=== PATIENT | female | born 1980 | race Caucasian/White ===

== ENCOUNTER 2016-08-13 18:03 | Emergency (ER) | payer SELFPAY ==
--- NOTE | 2016-08-13 20:46 | DIAGNOSTIC IMAGING REPORT ---
PROCEDURE: CT ABD/PELVIS WITH CONTRAST INDICATION: Right abdominal pain. Prior cholecystectomy. TECHNIQUE: 150 ml of Isovue 300 were injected intravenously and axial images were obtained of the entire abdomen and pelvis with sagittal and coronal reformations. COMPARISON: None. FINDINGS: ABDOMEN: Status post cholecystectomy (surgical clips). Liver, spleen, pancreas, kidneys (1 cm upper pole renal cyst), and aorta are normal. Bowel pattern is normal, including appendix. Mild degenerative change of the lower lumbar spine. PELVIS: Uterus and adnexal structures are normal. No evidence of free fluid. IMPRESSION: 1. Status post cholecystectomy. 2. Normal appendix. 3. Otherwise negative CT abdomen and pelvis. 4. Findings discussed with KELI Tejeda. All CT scans at this facility use dose modulation, iterative reconstruction, and/or weight-based dosing when appropriate to reduce radiation dose to as low as reasonably achievable.
--- NOTE | 2016-08-13 21:15 | ED ORDER SUMMARY ---
..... Patient: HARSHIL YUEN OrderSheet [facility] VisitID: [id number] [place] [address] 35y, F Registration Date/Time: 08/13/2016 ORDER SHEET Weight: 135.6 kg Allergies: Dilaudid GENERAL ORDERS: UA-Culture if indicated Urgent (18:29 08/13/2016 EInderbitzen R.N. verbal order read back to HBivens A.R.N.P.) (Ack 18:31 LMuller) (18:31 LMuller) Urine Urgent (18:29 08/13/2016 EInderbitzen R.N. verbal order read back to HBivens A.R.N.P.) (Ack 18:31 LMuller) (18:31 LMuller) CT Abd/Pel w Cont (No) (pending) Urgent (18:34 08/13/2016 HBivens A.R.N.P.) (Ack 18:35 LMuller) (19:52 Jodi ER Magneto Repairer) CBC w Diff Urgent (18:34 08/13/2016 HBivens A.R.N.P.) (Ack 18:35 LMuller) (18:58 EInderbitzen R.N.) CMP Urgent (18:34 08/13/2016 HBivens A.R.N.P.) (Ack 18:35 LMuller) (18:58 EInderbitzen R.N.) Amylase Urgent (18:34 08/13/2016 HBivens A.R.N.P.) (Ack 18:35 LMuller) (18:58 EInderbitzen R.N.) Lipase Urgent (18:34 08/13/2016 HBivens A.R.N.P.) (Ack 18:35 LMuller) (18:58 EInderbitzen R.N.) MEDICATION ORDERS: Hydrocodone-APAP PO 5/325 mg (NOW, HIGH ALERT MEDICATION) (21:14 08/13/2016 HBivens A.R.N.P.) (21:29 EInderbitzen R.N.) IV FLUIDS: IV Saline Lock (18:34 08/13/2016 HBivens A.R.N.P.) (18:58 EInderkrystian R.N.) Toradol IV 30 mg (NOW) (18:36 08/13/2016 HBivens A.R.N.P.) (18:58 EInderbitzen R.N.) Zofran IV 4 mg (NOW) (18:36 08/13/2016 HBivens A.R.N.P.) (18:58 EInderbitzen R.N.) ORDER SHEET NOTES: [Electronically signed by Tala Nur R.N. (21:29 08/13/2016)] [Electronically signed by Amalia MataRMeccaN.PMecca (21:30 08/13/2016)] [Electronically locked/signed by Tala Nur R.N. (21:29 08/13/2016)]
--- NOTE | 2016-08-13 21:15 | ED NURSING NOTES ---
Clinical Report - [facility] [address] [place] [address] 08/13/2016 18:06 [id number] TRI[facility] Triage time 18:13 Aug 13 2016. Acuity: LEVEL 3. Chief Complaint: ABDOMINAL PAIN and (right lower quadrant). 18:19 08/13/16. SEPSIS SCREEN: Sepsis Screen: positive. Infection suspected/documented. --18:19 Tala Nur R.N. 18:13 08/13/16. BP: 142/92. HR: 109. RR: 25. O2 saturation: 95%. Temp: 100.2 F. Pain level now: 04/17. --18:19 Tala Nur R.N. Weight: 135.6 kg. Height/Length: 69 inches. BMI: 44.2. --18:11 Tala Nur R.N. Medications None. --18:13 Tala Nur R.N. Medication/allergy information source: the patient. --18:19 Tala Nur R.N. Allergies Dilaudid. --18:13 Tala Nur R.N. History Arrived by private vehicle. Historian: patient. Accompanied by family. Onset. (7 days ago). ( each day progressively worse, today unbearable). She has had nausea. She has had vomiting (once today at 230 pm). She has had constipation (last bm midnight last night). No diarrhea. Treatment AUTOMATIC CAR WASH ATTENDANT: None. PAST MEDICAL HX: Immunizations: seasonal influenza. Last normal menstrual period- 2 months ago. SOCIAL HX: Heavy tobacco smoker (cigarette)- less than 1 pack per day. Occasional alcohol use. No drug use. No recent travel. No infectious disease exposure. No known contact with a sick individual. ABUSE ASSESSMENT: No report of abuse. SELF HARM ASSESSMENT: A self harm assessment was performed. The patient answered "no" to the question "Have you recently felt down, depressed, or hopeless?", "Have you noticed less interest or pleasure in doing things?", "Do you have thoughts of harming or killing yourself?", "Are you here because you tried to hurt yourself?", "Have you ever tried to hurt yourself before today?", "Have you recently had thoughts about harming or killing others?" and "Do you have any dangerous items in your possession?". FALL RISK ASSESSMENT: Fall risk assessment completed. No fall risk identified. NUTRITIONAL RISK ASSESSMENT: The nutritional risk assessment revealed no deficiencies. FUNCTIONAL ASSESSMENT: Functional assessment: no impairments noted. LEARNING NEEDS ASSESSMENT: The learning needs assessment revealed no barriers. SKIN INTEGRITY ASSESSMENT: Skin integrity risk assessment completed. No skin integrity risk identified. --18:19 Tala Nur R.N. PROBLEMS: no known problems. ADDITIONAL SURGERIES: Cholecystectomy. --18:14 Tala Nur R.N. Interventions ID band on patient. --18:19 Tala Nur R.N. PHYSICAL ASSESSMENT 18:20 08/13/16. Ambulatory to room. GENERAL / NEURO / PSYCH: Alert. Oriented X 4. Appears in pain. HEENT: Mucous membranes are pink. RESPIRATORY: Breath sounds within normal limits. CVS: Capillary refill less than 2 seconds. GI / : The patient has had nausea. Abdomen soft and nontender. Abdominal tenderness in the right lower quadrant. Guarding present. Guarding present. No diarrhea. No CVA tenderness, urethral discharge or vaginal discharge. SKIN: Skin is warm and dry. --18:28 Tala Nur R.N. NURSING PROGRESS NOTES 18:20 08/13/16. The initial plan of care for this patient includes an assessment with efforts to address the patient's anxiety; the presence of pain; impairment of the gastrointestinal and genitourinary system; hydration needs. This plan of care was discussed with the patient. Patient gowned. Reassurance given. Two patient identifiers checked. Call light placed in reach. Side rails up x 1. Bed placed in lowest position. Brakes of bed on. Patient ready for evaluation. --18:28 Tala Nur R.N. 18:29 08/13/16. Patient ID band checked for patient name and birthdate: patient confirmed. Instructions provided to collect clean catch urine and patient verbalized understanding. Clean catch urine collected with return of yellow-colored clear urine; sample sent to lab for urinalysis and HCG. Specimen labeled in the presence of the patient. --18:29 Tala Nur R.N. 18:55 08/13/2016 Site #1 started via IV in the right forearm with an 20g angiocath, with aseptic technique and good blood return; one attempt. Blood drawn: rainbow set. Labeled in the presence of the patient and sent to the lab. Saline lock flushed with 10 mL saline. --18:57 Tala Nur R.N. 18:55 08/13/2016 Zofran (Ondansetron HCl) IVP 4 mg given over 1 minute(s) via site #1. Allergies verified and confirmed 5 rights. IV patency established. IV site checked: no pain, redness, or swelling. IV flushed thoroughly pre- and post-medication administration. IVP given by RN. --18:58 Tala Nur R.N. 18:56 08/13/2016 Toradol IVP 30 mg given over 1 minute(s) via site #1. Allergies verified and confirmed 5 rights. IV patency established. IV site checked: no pain, redness, or swelling. IV flushed thoroughly pre- and post-medication administration. IVP given by RN. --18:58 Tala Nur R.N. 19:29 08/13/16. Reassessment after medication administered. She has had no adverse reaction. Overall patient status is improved- she states feels better. GI / : The patient reports abdominal pain is still present but improving. --19:29 Tala Nur R.N. 20:07 08/13/16. BP: 111/66. HR: 96. RR: 18. O2 saturation: 97%. Temp: 98.3 F. Pain level now 4/10. --20:07 Tala Nur R.N. 20:07 08/13/16. The patient is calm and resting quietly. Overall patient status is the same- she states feels the same. --20:08 Tala Nur R.N. 21:23 08/13/2016 Hydrocodone-APAP (Hydrocodone-Acetaminophen) PO 5/325 mg Tablets 1 tab given. Allergies verified, confirmed 5 rights and sedative warning given to the patient. --21:29 Tala Nur R.N. DISPOSITION / DISCHARGE 21:23 08/13/2016 Site #1 removed upon discharge. Catheter intact. Pressure dressing applied. --21:27 Tala Nur R.N. 21:28 08/13/16. Condition at departure: improved and stable. No learning barriers present. Reviewed medication(s) side effects, precautions, dosing and course information. Prescription(s) given to the patient. Reviewed fever care instructions. Reviewed referral to a primary care physician for followup and testing. Summary of care provided to patient. Patient verbalized understanding. Written instructions provided in Danish. The patient was discharged home and accompanied by spouse. She left the Emergency Department ambulatory and via private vehicle. Spouse driving. FALL RISK ASSESSMENT: Fall risk assessment completed. No fall risk identified. --21:28 Tala Nur R.N. 21:28 08/13/16. BP: 124/84. HR: 88. RR: 18. O2 saturation: 100%. Temp: 98.9 F. Pain level now 5/10. --21:28 Tala Nur R.N. Departure time: 21:Aug 13 2016. --21:28 Tala Nur R.N. Locked/Released at 08/13/2016 21:29 by Tala Nur R.N.
--- NOTE | 2016-08-13 21:15 | ED CLINICAL REPORT ---
Clinical Report - Physicians/Mid Levels [facility] [address] [place] [address] 08/13/2016 18:06 Patient: HARSHIL YUEN Time Seen: 18:14; initial patient contact, initial documentation, patient care assumed. Arrived- By private vehicle. Historian- patient. HISTORY OF PRESENT ILLNESS Chief Complaint: ABDOMINAL PAIN. At its maximum, severity described as severe. When seen in the E.D., severity described as severe. Modifying factors. Not worsened by anything. Not relieved by anything. It is described as "pain" and it is described as located in the right lower quadrant. This started about 1 weeks ago and is still present and worsening. The patient has had nausea, loss of appetite and vomiting. The vomiting has occurred only once. No diarrhea. No recent travel. Similar symptoms previously: None. Recent medical care: Not recently seen/assessed. REVIEW OF SYSTEMS No constipation, black stools, hematemesis, difficulty with urination or pain with urination. No urinary frequency, bloody stools, chest pain or difficulty breathing. Currently : unknown. The patient has had fever of 99 F. All systems otherwise negative, except as recorded above. PAST HISTORY See nurses notes. ADDITIONAL SURGERIES: Cholecystectomy. --18:14 Tala Nur R.N. SOCIAL HISTORY Heavy tobacco smoker. Occasional alcohol use. No drug use. No recent travel. Is a local resident. FAMILY HISTORY Negative. ADDITIONAL NOTES The nursing notes have been reviewed with agreement regarding the chief complaint, HPI, ROS, PMH and patient medications and allergies. PHYSICAL EXAM Vital Signs: 08/13/2016 18:13 BP: 142/92. HR: 109. RR: 25. O2 saturation: 95%. Temp: 100.2 F. Pain level now: 10/10. Have been reviewed as abnormal and appear to be correct. Blood pressure normal. Tachycardic. Respiratory rate normal. Febrile. Oxygen saturation normal. Appearance: Alert. Oriented X3. No acute distress. Eyes: Pupils equal, round and reactive to light. Eyes normal inspection. Neck: Normal inspection. Neck supple. CVS: Normal heart rate and rhythm. Heart sounds normal. Pulses normal. Respiratory: No respiratory distress. Breath sounds normal. Chest nontender. Abdomen: Soft. Moderate tenderness in the right lower quadrant with guarding and rebound tenderness present. Positive obturator and psoas sign. No Krause's sign present. Bowel sounds normal. No organomegaly. No mass. Moderately obese. Tenderness present. Back: Normal inspection. Skin: Skin warm and dry. Normal skin color. No rash. Normal skin turgor. Extremities: Extremities exhibit normal ROM. No lower extremity edema. Neuro: Oriented X 3. No motor deficit. No sensory deficit. LABS, X-RAYS, AND EKG Abdominal CT: No acute disease. IMPRESSION: 1. Status post cholecystectomy. 2. Normal appendix. 3. Otherwise negative CT abdomen and pelvis. 4. Findings discussed with KELI Tejeda. All CT scans at this facility use dose modulation, iterative reconstruction, and/or weight-based dosing when appropriate to reduce radiation dose to as low as reasonably achievable. Electronically Final signed by:Brian Edouard MD 08/13/2016 8:44:15 PM. The study was interpreted by the radiologist and discussed with the radiologist. Laboratory Tests: UA-Culture if indicated: (GILBERTO: 08/13/2016 18:24) ( MsgRcvd 08/13/2016 18:49) Final results Test Result Flag Units (Reference) URINE COLOR YELLOW URINE APPEARANCE CLEAR URINE GLUCOSE NEGATIVE (NEGATIVE) URINE BILIRUBIN NEGATIVE (NEGATIVE) URINE KETONE NEGATIVE (NEGATIVE) URINE SPECIFIC GRAVITY 1.025 (1.010-1.030) URINE PH 5.0 (5.0-8.0) URINE PROTEIN NEGATIVE (NEGATIVE) URINE UROBILINOGEN 0.2 EU/dL (0.2-1.0) URINE NITRITE NEGATIVE (NEGATIVE) URINE BLOOD NEGATIVE (NEGATIVE) URINE LEUK ESTERASE NEGATIVE (NEGATIVE) URINE RBC 1-3 rbc/hpf (0-1) URINE WBC 1-3 wbc/hpf (0-1) URINE EPITHELIAL CELLS 5-10 EPI/hpf (0-5) URINE BACTERIA FEW (1+) (NONE SEEN) URINE COMMENT CULT NOT INDICATED MUCUS 1+URINE CULTURES ARE SET-UP BASED ON THE FOLLOWING CRITERIA:POSITIVE NITRITEPOSITIVE LEUKOCYTE ESTERASEGREATER THAN 10 WHITE BLOOD CELLSMODERATE (2+) OR GREATER BACTERIA Urine: (GILBERTO: 08/13/2016 18:24) ( [facility] 08/13/2016 18:45) Final results Test Result Flag Units (Reference) URINE NEGATIVE CBC w Diff: (GILBERTO: 08/13/2016 18:55) ( MngRcvd 08/13/2016 19:10) Final results Test Result Flag Units (Reference) WHITE BLOOD COUNT 9.2 K/uL (4.5-11.5) RED BLOOD COUNT 4.78 M/uL (4.00-5.20) HEMOGLOBIN 13.2 gm/dL (12.0-16.0) HEMATOCRIT 40.0 % (36.0-46.0) MEAN CELL VOLUME 84 fL (80-100) MEAN CORPUSCULAR HGB 28 pg (26-34) MEAN CORPUSCULAR HGB CONC 33 g/dL (31-37) RED CELL DISTRIBUTION WIDTH 14.6 % (11.6-14.8) PLATELET COUNT 251 K/uL (150-400) NEUTROPHIL % 89.9 H % (50-75) LYMPH % 5.6 L % (25-40) MONO % 3.2 % (3-14) EOSINOPHIL % 1.2 % (0-4) BASOPHIL % 0.1 % (0-2) CMP: (GILBERTO: 08/13/2016 18:55) ( [facility] 08/13/2016 19:18) Final results Test Result Flag Units (Reference) GLUCOSE 105 mg/dL (70-110) BUN 14 mg/dL (7-18) CREATININE 0.7 mg/dL (0.6-1.3) Estimated GFR >60 mL/min Estimated GFR- >60 mL/min Note: Persistent reduction over 3 months in eGFR<60 mL/min/1.73 m2 defines CKD. Patients with eGFR values>=60 mL/min/1.73 m2 may also have CKD if evidence ofpersistent proteinuria. Additional information may be foundat www.kidney.org. SODIUM 138 mmol/L (136-145) POTASSIUM 3.8 mmol/L (3.5-5.1) CHLORIDE 104 mmol/L (98-107) CARBON DIOXIDE 22 mmol/L (21-32) CALCIUM 8.2 L mg/dL (8.5-10.1) TOTAL PROTEIN 7.3 g/dL (6.4-8.2) ALBUMIN 3.4 g/dL (3.3-5.0) BILIRUBIN, TOTAL 0.7 mg/dL (0.0-1.0) ALKALINE PHOSPHATASE 81 U/L (46-116) AST (SGOT) 57 H U/L (15-37) ALT (SGPT) 93 H U/L (12-78) LIPASE 97 U/L (73-393) AMYLASE 34 U/L (25-115) . PROGRESS AND PROCEDURES Course of Care: 08/13/2016 20:07 BP: 111/66. HR: 96. RR: 18. O2 saturation: 97%. Temp: 98.3 F. Vital Signs: have been reviewed as normal and appear to be correct. Patient and spouse counseled in person regarding the patient's stable condition, test results and diagnosis. 2104. Differential Diagnosis: I considered acute appendicitis, diverticulitis, colon cancer, biliary colic, cholecystitis, cholelithiasis, hepatitis, pancreatitis, urinary tract infection, cystitis, ureterolithiasis, ovarian cyst, ovarian torsion, , ectopic , pelvic inflammatory disease, pelvic abscess, Mittelschmerz syndrome, endometriosis and viral syndrome as a possible cause of abdominal pain in this patient. This is a partial list of diagnoses considered. Above considerations are based on history, physical exam, X-Ray data and other information. Differential diagnosis was discussed with patient. Disposition: Discharged home in good and improved condition (21:15). Condition: good and stable. CLINICAL IMPRESSION Acute right lower quadrant abdominal pain of undetermined cause. INSTRUCTIONS Warnings: GENERAL WARNINGS: Return or contact your physician immediately if your condition worsens or changes unexpectedly, if not improving as expected, or if other problems arise. SPECIFICALLY, return if you develop pain in the abdomen or pelvis, fever, vomiting, the inability to keep fluids down, blood in vomitus, blood in diarrhea, fainting, lightheadedness or vaginal bleeding. Prescription Medications: Zofran 4 mg: Take 1 orally every six hours as needed for nausea/vomiting. Dispense ten (10). No refills. Substitution is permissible. Ultram 50 mg tablets: take 1-2 orally every 6 hours as needed for pain. Dispense twenty (20). No refills. Substitution is permissible. Follow-up: Follow up with your doctor tomorrow even if well. Call for an appointment. Summary of care provided to patient. Understanding of the discharge instructions verbalized by patient. (Electronically signed by Amalia Mata A.R.N.P. 08/13/2016 21:30)
--- NOTE | 2016-08-13 21:15 | ED ORDER SUMMARY ---
..... Patient: HARSHIL YUEN OrderSheet [facility] VisitID: [id number] [place] [address] 35y, F Registration Date/Time: 08/13/2016 ORDER SHEET Weight: 135.6 kg Allergies: Dilaudid GENERAL ORDERS: UA-Culture if indicated Urgent (18:29 08/13/2016 EInderbitzen R.N. verbal order read back to HBivens A.R.N.P.) (Ack 18:31 LMuller) (18:31 LMuller) Urine Urgent (18:29 08/13/2016 EInderbitzen R.N. verbal order read back to HBivens A.R.N.P.) (Ack 18:31 LMuller) (18:31 LMuller) CT Abd/Pel w Cont (No) (pending) Urgent (18:34 08/13/2016 HBivens A.R.N.P.) (Ack 18:35 LMuller) (19:52 Jodi ER Ultrasound Technologist) CBC w Diff Urgent (18:34 08/13/2016 HBivens A.R.N.P.) (Ack 18:35 LMuller) (18:58 EInderbitzen R.N.) CMP Urgent (18:34 08/13/2016 HBivens A.R.N.P.) (Ack 18:35 LMuller) (18:58 EInderbitzen R.N.) Amylase Urgent (18:34 08/13/2016 HBivens A.R.N.P.) (Ack 18:35 LMuller) (18:58 EInderbitzen R.N.) Lipase Urgent (18:34 08/13/2016 HBivens A.R.N.P.) (Ack 18:35 LMuller) (18:58 EInderbitzen R.N.) MEDICATION ORDERS: Hydrocodone-APAP PO 5/325 mg (NOW, HIGH ALERT MEDICATION) (21:14 08/13/2016 HBivens A.R.N.P.) (21:29 EInderbitzen R.N.) IV FLUIDS: IV Saline Lock (18:34 08/13/2016 HBivens A.R.N.P.) (18:58 EInderkrystian R.N.) Toradol IV 30 mg (NOW) (18:36 08/13/2016 HBivens A.R.N.P.) (18:58 EInderbitzen R.N.) Zofran IV 4 mg (NOW) (18:36 08/13/2016 HBivens A.R.N.P.) (18:58 EInderbitzen R.N.) ORDER SHEET NOTES: [Electronically signed by Tala Nur R.N. (21:29 08/13/2016)] [Electronically signed by Amalia MataRMeccaN.PMecca (21:30 08/13/2016)] [Electronically locked/signed by Tala Nur R.N. (21:29 08/13/2016)]
--- NOTE | 2016-08-13 21:30 | ED MED RECONCILIATION SUMMARY ---
Patient: HARSHIL YUEN Medication Reconciliation Report [facility] VisitID: [id number] [address] [place] [address] 35y, F Registration Date/Time: 08/13/2016 Weight: 135.6 kg Height/Length: 69 in. BMI: 44.2 ALLERGIES: Dilaudid The patient's Home Medications are listed below: NONE. The source(s) of the original Home Medication information: patient The following Medications were given to the patient in the Emergency Department: Toradol [IVP] IVP 30 mg, administered: 08/13/2016 6:56:00 PM Zofran [IVP] IVP 4 mg, administered: 08/13/2016 6:55:00 PM Hydrocodone-APAP [PO] PO 1 tab, administered: 08/13/2016 9:23:00 PM The following Medications were prescribed to the patient: Zofran 4 mg: Take 1 orally every six hours as needed for nausea/vomiting. Dispense ten (10). No refills. Substitution is permissible. -- Amalia Mata, Flako.R.N.P. Ultram 50 mg tablets: take 1-2 orally every 6 hours as needed for pain. Dispense twenty (20). No refills. Substitution is permissible. -- Amalia Mata A.R.N.P.
--- NOTE | 2016-08-13 21:30 | ED MED RECONCILIATION SUMMARY ---
Patient: HARSHIL YUEN Medication Reconciliation Report [facility] VisitID: [id number] [address] [place] [address] 35y, F Registration Date/Time: 08/13/2016 Weight: 135.6 kg Height/Length: 69 in. BMI: 44.2 ALLERGIES: Dilaudid The patient's Home Medications are listed below: NONE. The source(s) of the original Home Medication information: patient The following Medications were given to the patient in the Emergency Department: Toradol [IVP] IVP 30 mg, administered: 08/13/2016 6:56:00 PM Zofran [IVP] IVP 4 mg, administered: 08/13/2016 6:55:00 PM Hydrocodone-APAP [PO] PO 1 tab, administered: 08/13/2016 9:23:00 PM The following Medications were prescribed to the patient: Zofran 4 mg: Take 1 orally every six hours as needed for nausea/vomiting. Dispense ten (10). No refills. Substitution is permissible. -- Amalia Mata, Flako.R.N.P. Ultram 50 mg tablets: take 1-2 orally every 6 hours as needed for pain. Dispense twenty (20). No refills. Substitution is permissible. -- Amalia Mata A.R.N.P.
--- NOTE | 2016-08-13 21:30 | ED DISCHARGE INSTRUCTIONS ---
Patient: HARSHIL YUEN General Instructions [facility] VisitID: [id number] [place] [address] 35y, F Registration Date/Time: 08/13/2016 Acute right lower quadrant abdominal pain of undetermined cause. INSTRUCTIONS Warnings: GENERAL WARNINGS: Return or contact your physician immediately if your condition worsens or changes unexpectedly, if not improving as expected, or if other problems arise. SPECIFICALLY, return if you develop pain in the abdomen or pelvis, fever, vomiting, the inability to keep fluids down, blood in vomitus, blood in diarrhea, fainting, lightheadedness or vaginal bleeding. Prescription Medications: Zofran 4 mg: Take 1 orally every six hours as needed for nausea/vomiting. Dispense ten (10). No refills. Substitution is permissible. Ultram 50 mg tablets: take 1-2 orally every 6 hours as needed for pain. Dispense twenty (20). No refills. Substitution is permissible. Follow-up: Follow up with your doctor tomorrow even if well. Call for an appointment. Summary of care provided to patient. Understanding of the discharge instructions verbalized by patient. ADDITIONAL INFORMATION Abdominal Pain, Unknown Cause (Female) The exact cause of your abdominal (stomach) pain is not certain. This does not mean that this is something to worry about, or the right tests were not done. Everyone likes to know the exact cause of the problem, but sometimes with abdominal pain, there is no clear-cut cause, and this could be a good thing. The good news is that your symptoms can be treated, and you will feel better. Your condition does not seem serious now; however, sometimes the signs of a serious problem may take more time to appear. For this reason,it is important for you to watch for any new symptoms, problems,or worsening of your condition. Over the next few days, the abdominal pain may come and go, or be continuous. Other common symptoms can include nausea and vomiting. Sometimes it can be difficult to tell if you feel nauseous, you may just feel bad and not associate that feeling with nausea. Constipation, diarrhea, and a fever may go along with the pain. The pain may continue even if treated correctly over the following days. Depending on how things go, sometimes the cause can become clear and may require further or different treatment. Additional evaluations, medications, or tests may be needed. Home care Your health care provider may prescribe medications for pain, symptoms, or an infection. Follow the health care provider's instructions for taking these medications. General care Rest until your next exam. No strenuous activities. Try to find positions that ease discomfort. A small pillow placed on the abdomen may help relieve pain. Something warm on your abdomen (such as a heating pad) may help, but be careful not to burn yourself. Diet Do not force yourself to eat, especially if having cramps, vomiting, or diarrhea. Water is important so you do not get dehydrated. Soup may also be good. Sports drinks may also help, especially if they are not too acidic. Make sure you don't drink sugary drinks as this can make things worse. Take liquids in small amounts. Do not guzzle them. Caffeine sometimes makes the pain and cramping worse. Avoid dairy products if you have vomiting or diarrhea. Don't eat large amounts at a time. Wait a few minutes between bites. Eat a diet low in fiber (called a low-residue diet). Foods allowed include refined breads, white rice, fruit and vegetable juices without pulp, tender meats. These foods will pass more easily through the intestine. Avoid whole-grain foods, whole fruits and vegetables, meats, seeds and nuts, fried or fatty foods, dairy, alcohol and spicy foods until your symptoms go away. Follow-up care Follow up with your health care provider as instructed, or if your pain does not begin to improve in the next 24 hours. When to seek medical care Seek prompt medical care if any of the following occur: Pain gets worse or moves to the right lower abdomen New or worsening vomiting or diarrhea Swelling of the abdomen Unable to pass stool for more than three days Fever of 100.4F (38C) or higher, or as directed by your healthcare provider. Blood in vomit or bowel movements (dark red or black color) Jaundice (yellow color of eyes and skin) Weakness, dizziness Chest, arm, back, neck or jaw pain Unexpected vaginal bleeding or missed period Call 911 Call emergency services if any of the following occur: Trouble breathing Confusion Fainting or loss of consciousness Rapid heart rate Seizure Abdominal Pain,Possible Appendicitis [Repeat Exam, Female] Based on your visit today, the exact cause of your abdominal (stomach) pain is not certain. However, you do have some of the early signs of APPENDICITIS. Early in an appendix infection the symptoms can be similar to a simple "stomach ache" or "stomach flu". Therefore, the diagnosis can be hard to make. Since an appendix infection is a serious condition, it is important to know if this is the cause of your symptoms. WAITING for more time to pass and repeating the exam is the best way to find out whether you have appendicitis. Within the next 12-24 hours the cause of your stomach pain should become clear. It is important for you to watch for any new symptoms or worsening of your condition. (See below). Home Care: Rest until your next exam. No strenuous activities. Eat a diet low in fiber (called a low-residue diet). Foods allowed include refined breads, white rice, fruit and vegetable juices without pulp, tender meats. These foods will pass more easily through the intestine. Avoid whole-grain foods, whole fruits and vegetables, meats, seeds and nuts, fried or fatty foods, dairy, alcohol and spicy foods until your symptoms go away. In some cases, you may be asked not to eat or drink anything until you are re-examined. Return for another exam exactly as directed. Follow Up with your doctor or this facility as directed. Get Prompt Medical Attention if any of the following occur: Pain gets worse or moves to the right lower abdomen New or worsening vomiting or diarrhea Swelling of the abdomen Unable to pass stool for more than three days Fever of 100.4F (38C) or higher, or as directed by your healthcare provider Blood in vomit or bowel movements (dark red or black color) Weakness, dizziness or fainting Unexpected vaginal bleeding Ondansetron Oral disintegrating tablet What is this medicine? ONDANSETRON (on HAJA se stacie) is used to treat nausea and vomiting caused by chemotherapy. It is also used to prevent or treat nausea and vomiting after surgery. How should I use this medicine? These tablets are made to dissolve in the mouth. Do not try to push the tablet through the foil backing. With dry hands, peel away the foil backing and gently remove the tablet. Place the tablet in the mouth and allow it to dissolve, then swallow. While you may take these tablets with water, it is not necessary to do so. Talk to your motor coach tour operator regarding the use of this medicine in children. Special care may be needed. What side effects may I notice from receiving this medicine? Side effects that you should report to your doctor or health patient care coordinator as soon as possible: allergic reactions like skin rash, itching or hives, swelling of the face, lips, or tongue breathing problems dizziness fast or irregular heartbeat feeling faint or lightheaded, falls fever and chills swelling of the hands and feet tightness in the chest Side effects that usually do not require medical attention (report to your doctor or health patient care coordinator if they continue or are bothersome): constipation or diarrhea headache What may interact with this medicine? Do not take this medicine with any of the following medications: -apomorphine -cisapride -dofetilide -dronedarone -pimozide -thioridazine -ziprasidone This medicine may also interact with the following medications: -carbamazepine -phenytoin -rifampicin -tramadol -other medicines that prolong the QT interval (cause an abnormal heart rhythm) What if I miss a dose? If you miss a dose, take it as soon as you can. If it is almost time for your next dose, take only that dose. Do not take double or extra doses. Where should I keep my medicine? Keep out of the reach of children. Store between 2 and 30 degrees C (36 and 86 degrees F). Throw away any unused medicine after the expiration date. What should I tell my health care provider before I take this medicine? They need to know if you have any of these conditions: heart disease history of irregular heartbeat liver disease low levels of magnesium or potassium in the blood an unusual or allergic reaction to ondansetron, granisetron, other medicines, foods, dyes, or preservatives or trying to get breast-feeding What should I watch for while using this medicine? Check with your doctor or health patient care coordinator as soon as you can if you have any sign of an allergic reaction. Tramadol Hydrochloride Oral tablet What is this medicine? TRAMADOL (TRA ma dole) is a pain reliever. It is used to treat moderate to severe pain in adults. How should I use this medicine? Take this medicine by mouth with a full glass of water. Follow the directions on the prescription label. If the medicine upsets your stomach, take it with food or milk. Do not take more medicine than you are told to take. Talk to your motor coach tour operator regarding the use of this medicine in children. Special care may be needed. What side effects may I notice from receiving this medicine? Side effects that you should report to your doctor or health patient care coordinator as soon as possible: allergic reactions like skin rash, itching or hives, swelling of the face, lips, or tongue breathing difficulties, wheezing confusion itching light headedness or fainting spells redness, blistering, peeling or loosening of the skin, including inside the mouth seizures Side effects that usually do not require medical attention (report to your doctor or health patient care coordinator if they continue or are bothersome): constipation dizziness drowsiness headache nausea, vomiting What may interact with this medicine? Do not take this medicine with any of the following medications: MAOIs like Carbex, Eldepryl, Marplan, Nardil, and Parnate This medicine may also interact with the following medications: alcohol or medicines that contain alcohol antihistamines benzodiazepines bupropion carbamazepine or oxcarbazepine clozapine cyclobenzaprine digoxin furazolidone linezolid medicines for depression, anxiety, or psychotic disturbances medicines for migraine headache like almotriptan, eletriptan, frovatriptan, naratriptan, rizatriptan, sumatriptan, zolmitriptan medicines for pain like pentazocine, buprenorphine, butorphanol, meperidine, nalbuphine, and propoxyphene medicines for sleep muscle relaxants naltrexone phenobarbital phenothiazines like perphenazine, thioridazine, chlorpromazine, mesoridazine, fluphenazine, prochlorperazine, promazine, and trifluoperazine procarbazine warfarin What if I miss a dose? If you miss a dose, take it as soon as you can. If it is almost time for your next dose, take only that dose. Do not take double or extra doses. Where should I keep my medicine? Keep out of the reach of children. Store at room temperature between 15 and 30 degrees C (59 and 86 degrees F). Keep container tightly closed. Throw away any unused medicine after the expiration date. What should I tell my health care provider before I take this medicine? They need to know if you have any of these conditions: brain tumor depression drug abuse or addiction head injury if you frequently drink alcohol containing drinks kidney disease or trouble passing urine liver disease lung disease, asthma, or breathing problems seizures or epilepsy suicidal thoughts, plans, or attempt; a previous suicide attempt by you or a family member an unusual or allergic reaction to tramadol, codeine, other medicines, foods, dyes, or preservatives or trying to get breast-feeding What should I watch for while using this medicine? Tell your doctor or health patient care coordinator if your pain does not go away, if it gets worse, or if you have new or a different type of pain. You may develop tolerance to the medicine. Tolerance means that you will need a higher dose of the medicine for pain relief. Tolerance is normal and is expected if you take this medicine for a long time. Do not suddenly stop taking your medicine because you may develop a severe reaction. Your body becomes used to the medicine. This does NOT mean you are addicted. Addiction is a behavior related to getting and using a drug for a non-medical reason. If you have pain, you have a medical reason to take pain medicine. Your doctor will tell you how much medicine to take. If your doctor wants you to stop the medicine, the dose will be slowly lowered over time to avoid any side effects. You may get drowsy or dizzy. Do not drive, use machinery, or do anything that needs mental alertness until you know how this medicine affects you. Do not stand or sit up quickly, especially if you are an older patient. This reduces the risk of dizzy or fainting spells. Alcohol can increase or decrease the effects of this medicine. Avoid alcoholic drinks. You may have constipation. Try to have a bowel movement at least every 2 to 3 days. If you do not have a bowel movement for 3 days, call your doctor or health patient care coordinator. Your mouth may get dry. Chewing sugarless gum or sucking hard candy, and drinking plenty of water may help. Contact your doctor if the problem does not go away or is severe. You have been given the following additional information: Abdominal Pain, Unknown Cause, (Female) Abdominal Pain, Possible Appendicitis (Female) Ondansetron Oral disintegrating tablet Tramadol Hydrochloride Oral tablet (Electronically signed by Amalia Mata A.R.N.P. 08/13/2016 21:30)
--- NOTE | 2016-08-13 21:30 | ED MAR SUMMARY ---
..... Medication Administration Record [facility] [address] [place] [address] Patient: HARSHIL YUEN Visit ID: [id number] 35y, F Weight: 135.6 kg Height/Length: 69 in BMI: 44.2 ALLERGIES: Dilaudid Given 18:55 08/13/2016 Tala Nur R.N. Medication Administered: ZOFRAN [IVP] (ONDANSETRON HCL), Dose: 4 mg IVP over 1 minute(s), Site: #1 right forearm. Medication Ordered: Zofran IV 4 mg (NOW). Given 18:56 08/13/2016 Tala Nur R.N. Medication Administered: TORADOL [IVP], Dose: 30 mg IVP over 1 minute(s), Site: #1 right forearm. Medication Ordered: Toradol IV 30 mg (NOW). Given 21:23 08/13/2016 Tala Nur R.N. Medication Administered: HYDROCODONE-APAP [PO] (HYDROCODONE-ACETAMINOPHEN), Dose: 1 tab 5/325 mg Tablets PO. Medication Ordered: Hydrocodone-APAP PO 5/325 mg (NOW, HIGH ALERT MEDICATION).
--- NOTE | 2016-08-13 21:30 | ED MAR SUMMARY ---
..... Medication Administration Record [facility] [address] [place] [address] Patient: HARSHIL YUEN Visit ID: [id number] 35y, F Weight: 135.6 kg Height/Length: 69 in BMI: 44.2 ALLERGIES: Dilaudid Given 18:55 08/13/2016 Tala Nur R.N. Medication Administered: ZOFRAN [IVP] (ONDANSETRON HCL), Dose: 4 mg IVP over 1 minute(s), Site: #1 right forearm. Medication Ordered: Zofran IV 4 mg (NOW). Given 18:56 08/13/2016 Tala Nur R.N. Medication Administered: TORADOL [IVP], Dose: 30 mg IVP over 1 minute(s), Site: #1 right forearm. Medication Ordered: Toradol IV 30 mg (NOW). Given 21:23 08/13/2016 Tala Nur R.N. Medication Administered: HYDROCODONE-APAP [PO] (HYDROCODONE-ACETAMINOPHEN), Dose: 1 tab 5/325 mg Tablets PO. Medication Ordered: Hydrocodone-APAP PO 5/325 mg (NOW, HIGH ALERT MEDICATION).
== END 2016-08-13 21:28 | disposition home or self-care (01) ==
LOC: ED SRH 18:03
DX: R10.31 Right lower quadrant pain (principal); F17.210 Nicotine dependence, cigarettes, uncomplicated; Z90.49 Acquired absence of other specified parts of digestive tract; Z88.5 Allergy status to narcotic agent
CPT/HCPCS: 90004; 90100; 92235; 92530; 93070; 95059